=== PATIENT | female | born 1955 | race Caucasian/White ===

== ENCOUNTER 2019-08-04 11:10 | Inpatient (IN) ==
[2019-08-04] MEDS ORDERED: NS 1,000 ML IV PRN (11:32)
[2019-08-04 11:58] LABS: BILIRUBIN URINE NEGATIVE (NEGATIVE); BLOOD URINE NEGATIVE (NEGATIVE); COLOR YELLOW; GLUCOSE URINE NEGATIVE (NEGATIVE); KETONE URINE TRACE mg/dL (NEGATIVE); LEUKOCYTES URINE NEGATIVE (NEGATIVE); NITRITE URINE NEGATIVE (NEGATIVE); PH URINE 6.5; PROTEIN URINE TRACE mg/dL (NEGATIVE); SP GRAVITY URINE 1.016; TURBIDITY URINE CLEAR (CLEAR); URINE SOURCE CATH; UROBILINOGEN URINE NORMAL (NORMAL)
[2019-08-04 12:00] LABS: UR EPITHELIAL CELLS <10 /HPF (<10); URINE BACTERIA NEGATIVE /HPF; URINE RBC <10 /HPF (<10); URINE WBC <10 /HPF (<10)
[2019-08-04 12:06] LABS: BASO# 0.02 X1000 (0.0-0.2); BASO% 0.1 % (0.0-0.8); EOS# 0.01 X1000 (0.0-0.7); HEMATOCRIT 29.4 % (37.0-47.0); HEMOGLOBIN 8.7 g/dL (12.0-16.0); IMM GRAN# 0.06 X1000 (0.0-0.04); IMM GRAN% 0.3 % (0.0-0.5); LYMPH# 0.49 X1000 (1.2-3.4); LYMPH% 2.4 % (20.5-51.1); MCH 24.8 PG (27-31); MCHC 29.6 g/dL (33-37); MCV 83.8 FL (81-99); MONO# 0.86 X1000 (0.11-0.59); MONO% 4.3 % (1.7-9.3); MPV 9.6 FL (7.4-10.4); NEUT# 18.72 X1000 (1.4-6.5); NEUT% 92.9 % (42.2-75.2); PLT 328 X1000 (130-400); RBC 3.51 XMIL (4.2-5.4); RDW 14.3 % (11.5-14.5); WBC 20.16 X1000 (4.8-10.8)
--- NOTE | 2019-08-04 12:12 | Diag Imaging Result Doc PS360 ---
EXAM: CT HEAD W/O CONTRAST HISTORY: decreased mental status TECHNIQUE: CT head without intravenous contrast COMPARISON: None. FINDINGS: No parenchymal hemorrhage. No epidural or subdural hematoma. No subarachnoid hemorrhage. No mass identified on this noncontrasted exam. No hydrocephalus. Mucous in the right maxillary sinus.. IMPRESSION: No hemorrhage. Mild right maxillary sinusitis. This exam was performed using automated exposure control, adjustment of mA or kV according to patient size, and/or use of iterative reconstruction technique. Electronically signed by Ambrosio Maldonado 08/04/2019 12:09 PM
--- NOTE | 2019-08-04 12:13 | Diag Imaging Result Doc PS360 ---
EXAM: CHEST-PORTABLE HISTORY: decreased mental status TECHNIQUE: Single view COMPARISON: None. FINDINGS: The lungs are well expanded. There are bilateral basilar infiltrates. No cardiomegaly. Questionable tiny right pleural effusion. IMPRESSION: Bibasilar pneumonia Electronically signed by Ambrosio Maldonado 08/04/2019 12:11 PM
[2019-08-04 12:14] LABS: UR AMPHETAMINES QUAL PRESUMPTIVE POSITIVE (NONE DETECT); UR BARBITUATES QUAL NONE DETECTED (NONE DETECT); UR BENZODIAZEPIN QUAL NONE DETECTED (NONE DETECT); UR CANNABINOIDS QUAL NONE DETECTED (NONE DETECT); UR COCAINE QUAL NONE DETECTED (NONE DETECT); UR METHADONE QUAL NONE DETECTED (NONE DETECT); UR METHAMPHETAMINE QUAL NONE DETECTED (NONE DETECT); UR OPIATES QUAL NONE DETECTED (NONE DETECT); UR OXYCODONE QUAL NONE DETECTED (NONE DETECT); UR PCP QUAL NONE DETECTED (NONE DETECT); UR PROPOXYPHENE QUAL NONE DETECTED (NONE DETECT); UR TCA QUAL NONE DETECTED (NONE DETECT)
[2019-08-04 12:19] LABS: AGAP 12; ALBUMIN 3.6 g/dL (3.5-5.0); ALKALINE PHOSPHATASE 112 U/L (32-104); BUN 13 mg/dL (8-22); CALCIUM 8.9 mg/dL (8.8-10.2); CHLORIDE 96 mmol/L (98-107); COSMO 270; CREATININE 0.6 mg/dL (0.5-0.9); ESTIMATED GFR > 60; GLUCOSE 100 mg/dL (70-104); GOT 70 U/L (10-30); GPT 25 U/L (10-36); SODIUM 135 mmol/L (136-145); TCO2 27 mmol/L (25-35)
[2019-08-04 12:25] LABS: INR 1.22; PROTIME 16.1 Seconds (11.0-16.0)
[2019-08-04] MEDS ORDERED: ROCEPHIN IV ONE (12:48)
--- NOTE | 2019-08-04 13:08 | EKG Report ---
Test Performed on : 08/04/2019 12:51:22 PM Test Reason : altered mental status Blood Pressure : / mmHG Vent. Rate : 100 BPM Atrial Rate : 100 BPM P-R Int : 140 ms QRS Dur : 082 ms QT Int : 384 ms P-R-T Axes : 062 048 047 degrees QTc Int : 495 ms Normal sinus rhythm. Possible Left atrial enlargement Prolonged QT Abnormal ECG When compared with ECG of 16-APR-2019 13:32, QT has lengthened Unconfirmed Result
[2019-08-04 13:21] LABS: BE 4.9 mmoll (-3.0-3.0); BLOOD TYPE ARTERIAL; HCO3-(ACT) 28.6 mmoll (20.0-26.0); METHB 0.6 % (0.0-1.5); O2(CT) 11.8 mL/dL (15.0-23.0); O2HB 90.6 % (95.0-99.0); PCO2(98.6) 41 mmHg (35-45); PO2(98.6) 53 mmHg (60-100); SAMPLE BLOOD; SAO2 93.2 % (95.0-100.0); THB 9.2 g/dL (11.5-17.4); pH(98.6) 7.46 (7.35-7.45)
[2019-08-04 13:24] LABS: ALLEN TEST YES; MODALITY CANNULA
[2019-08-04] MEDS: ZITHROMAX 500 MG/NS 500 MG/250 ML IVPB IV SCH (14:15)
[2019-08-04] MEDS ORDERED: ROCEPHIN ONE (15:17)
--- NOTE | 2019-08-04 16:30 | PROVIDER DOCUMENTATION ---
This chart was entered by Rita Sierra Scribe, acting as scribe for Lindsey Vazquez MD. HPI-Psychological Disorder - General Chief Complaint: Altered Mental Status Stated Complaint: psych Time Seen by Provider: 08/04/19 11:21 Source: patient, EMS ([facility]) Unable to obtain history due to:: altered Allergies/Adverse Reactions: Patient Allergies Allergy/AdvReac Type Severity Reaction Status Date / Time No Known Allergies Allergy Verified 05/02/14 12:17 Home Medications: Home Medication List Medication Instructions Recorded Confirmed Last Taken Type Alprazolam [Xanax] 2 mg PO TID 05/02/14 05/03/14 05/03/14 04:00 History Amphetamine Salts [Adderall] 30 mg PO BID 05/02/14 05/03/14 04/30/14 10:00 History Carisoprodol [Soma] 350 mg PO TID 05/02/14 05/03/14 04/12/14 21:00 History Estradiol [Estrace] 1 mg PO DAILY 05/02/14 05/03/14 04/26/14 10:00 History Fluoxetine HCl [Prozac] 80 mg PO DAILY 05/02/14 05/03/14 05/02/14 10:00 History Iron 18 mg PO DAILY 05/02/14 05/03/14 03/28/14 09:00 History Levothyroxine [Synthroid] 88 microgm PO DAILY 05/02/14 05/03/14 04/30/14 10:00 History Metformin [Glucophage] 1,000 mg PO BID 05/02/14 05/03/14 05/02/14 16:00 History Oxycodone E.r. [Oxycontin] 15 mg PO Q12HR PRN 05/02/14 05/03/14 05/02/14 16:00 History Oxycodone HCl 30 mg PO BID 05/02/14 05/03/14 05/03/14 04:00 History Saxagliptin HCl [Onglyza] 2.5 mg PO DAILY 05/02/14 05/03/14 05/02/14 08:00 History Ciprofloxacin [Cipro] 250 mg PO BID #14 tab 04/16/19 Unknown Rx - History of Present Illness-Psych Nature of Presenting Problem: 63 yowf presents to the ed via ems ([facility]) for ams since yesterday. per ems family called and sts pt was tearing the house apart and has been aggressive toward family and wanted pt brought to hosp. pt on exam has increased rate of speech and not making logical sense to staff. pt has multiple abrasions and ecchymosis to BUE and face and dried blood seen on lips and face. pt is noncompliant with exam Onset/Duration: reports: 24 hours ago Timing: reports: still present, constant, getting worse Severity: reports: moderate Psychiatric Complaints: reports: altered mental status, impaired concentration, rapid pulse, restlessness Substance Use: reports: amphetamines, benzodiazepines Previous psych related hospitalizations?: Yes Patient arrived by:: EMS called by spouse/family Similar Symptoms Previously?: Yes Recently seen or treated by another doctor?: No Review of Systems - Adult - REVIEW OF SYSTEMS - ADULT ROS:: limited per condition Constitutional: denies: fever, fatique Eyes: reports: no symptoms reported Ears, Nose, Mouth & Throat: reports: see HPI, other (dried blood seen around mouth and bruising to rt cheek) Cardiovascular: denies: chest pain, syncope Respiratory: denies: shortness of breath, wheezing Gastrointestinal: reports: no symptoms reported Genitourinary: reports: no symptoms reported Musculoskeletal: reports: no symptoms reported Integumentary: reports: no symptoms reported Neurological: reports: no symptoms reported Psychiatric: reports: see HPI, anxiety Endocrine: reports: no symptoms reported Hematologic/Lymphatic: reports: no symptoms reported Allergic/Immunologic: reports: no symptoms reported All Other Systems: Reviewed and Negative Past History - Adult - PAST MEDICAL HISTORY-ADULT Review of Records: reports: Old Records Reviewed, Nursing Assessment Review, Medications Reviewed, Social history reviewed & non-contributory. Major Childhood Illnesses: reports: denies history Cardiovascular: reports: denies history Respiratory: reports: sleep apnea Gastrointestinal: reports: denies history Obstetrical/Gynecological: reports: denies history Genitourinary: reports: denies history Musculoskeletal: reports: denies history Neurological: reports: denies history Psychiatric: reports: anxiety, psychiatric problems, other (OCD) Endocrine/Immune: reports: thyroid disorder Other Conditions: reports: denies history - PRIOR SURGERIES/PROCEDURES Surgical/Procedure History: reports: reviewed, not pertinent - IMMUNIZATION STATUS Childhood Immunizations: See Nurse Assessment Flu Vaccine: See Nurse Assessment - FAMILY HISTORY Family History: reviewed, not pertinent - SOCIAL HISTORY Smoking: cigarettes, greater than 1 pack/day Provider spent 3-5 mins advising pt. on dangers of tobacco.: Discussed manners to quit use, and f/u contacts for add'l counseling. Substance Use: amphetamines, benzodiazepines Living Situation: family Physical Exam-Psych Focus - Physical Exam-Psych Exam Limited by: pt does not cooperate with whole exam Initial Vital Signs Reviewed: Yes Appearance: alert, anxious, combative, disheveled, impaired insight, impaired recent memory, impaired remote memory Neurological: agitated, anxious Behavior/Eye Contact/Speech: increased rate of speech, belligerent, uncooperative Thoughts/Hallucinations: incoherent HENMT: other (no teeth and dried blood seen around lips and face bruise on rt cheek). negative: moist mucous membranes Neck: non-tender, full range of motion Respiratory: chest non-tender, increased rate Cardiovascular: tachycardia (117) Abdominal Exam: non tender, soft Back Exam: no CVA tenderness, other (pt is supine on stretcher and not compliant with exam) Extremity: other (multiple abrasions to BUE) Integumentary: warm/dry, abrasion(s) (BUE), ecchymosis (face) Progress - PLAN OF CARE/RESULTS Progress/Plan/Lab Results: Vital Signs - 8 hr 08/04/19 11:17 08/04/19 12:49 08/04/19 13:45 Temperature 98 F Pulse Rate 117 H 101 H 96 H Respiratory Rate 24 25 H Blood Pressure 157/93 136/79 122/74 O2 Sat by Pulse Oximetry 93 L 86 L 95 08/04/19 15:41 Temperature Pulse Rate 89 Respiratory Rate 20 Blood Pressure 126/76 O2 Sat by Pulse Oximetry 96 Laboratory Results - last 24 hr 08/04/19 08/04/19 08/04/19 11:35 11:35 11:35 WBC 20.16 H RBC 3.51 L Hgb 8.7 L Hct 29.4 L MCV 83.8 MCH 24.8 L MCHC 29.6 L RDW Std Deviation 14.3 Plt Count 328 MPV 9.6 Immature Gran % (Auto) 0.3 Neut % (Auto) 92.9 H Lymph % (Auto) 2.4 L [place] % (Auto) 4.3 Eos % (Auto) 0.0 Baso % (Auto) 0.1 Immature Gran # (Auto) 0.06 H Neut # (Auto) 18.72 H Lymph # (Auto) 0.49 L [place] # (Auto) 0.86 H Eos # (Auto) 0.01 Baso # (Auto) 0.02 PT INR PTT (Actin FS) Specimen Type Sample Site pH pCO2 pO2 HCO3 Base Excess Oxyhemoglobin ABG O2 Sat (Calculated) ABG O2 Saturation ABG Carboxyhemoglobin ABG Methemoglobin Ashwin Test A-a O2 Difference Total Hemoglobin Lactate Liter Flow Blood Gas Modality FiO2 % Sodium Potassium Chloride Carbon Dioxide Anion Gap BUN Creatinine Estimated GFR/1.73 m2 BUN/Creatinine Ratio Glucose Calculated Osmolality Calcium Total Bilirubin AST ALT Alkaline Phosphatase Troponin T High Sens Total Protein Albumin Globulin Albumin/Globulin Ratio Plasma Lactate Urine Source Urine Color Urine Turbidity Urine pH Ur Specific [place] Urine Protein Ur Glucose (Stick) Ur Ketones (Stick) Urine Blood Urine Nitrite Urine Bilirubin Urobilinogen Dipstick Urine Leukocytes Urine WBC (Auto) Urine RBC (Auto) U Epithel Cells (Auto) Urine Bacteria (Auto) Urine Opiates Screen NONE DETECTED Ur Oxycodone Screen NONE DETECTED Urine Methadone Screen NONE DETECTED U Propoxyphene Qual NONE DETECTED Ur Barbituates Screen NONE DETECTED Ur Tricyclics Screen NONE DETECTED Ur Phencyclidine Scrn NONE DETECTED Ur Amphetamines Screen PRESUMPTIVE POSITIVE A U Methamphetamines Scrn NONE DETECTED U Benzodiazepines Scrn NONE DETECTED Urine Cocaine Screen NONE DETECTED U Cannabinoids Screen NONE DETECTED Plasma/Serum Ethyl Alc 08/04/19 08/04/19 08/04/19 11:35 11:35 11:35 WBC RBC Hgb Hct MCV MCH MCHC RDW Std Deviation Plt Count MPV Immature Gran % (Auto) Neut % (Auto) Lymph % (Auto) [place] % (Auto) Eos % (Auto) Baso % (Auto) Immature Gran # (Auto) Neut # (Auto) Lymph # (Auto) [place] # (Auto) Eos # (Auto) Baso # (Auto) PT 16.1 H INR 1.22 PTT (Actin FS) 36.0 Specimen Type Sample Site pH pCO2 pO2 HCO3 Base Excess Oxyhemoglobin ABG O2 Sat (Calculated) ABG O2 Saturation ABG Carboxyhemoglobin ABG Methemoglobin Ashwin Test A-a O2 Difference Total Hemoglobin Lactate Liter Flow Blood Gas Modality FiO2 % Sodium 135 L Potassium 4.0 Chloride 96 L Carbon Dioxide 27 Anion Gap 12 BUN 13 Creatinine 0.6 Estimated GFR/1.73 m2 > 60 BUN/Creatinine Ratio 22 Glucose 100 Calculated Osmolality 270 Calcium 8.9 Total Bilirubin 1.10 H AST 70 H ALT 25 Alkaline Phosphatase 112 H Troponin T High Sens 22 H* Total Protein 6.0 L Albumin 3.6 Globulin 2.0 Albumin/Globulin Ratio 2.0 Plasma Lactate Urine Source Urine Color Urine Turbidity Urine pH Ur Specific [place] Urine Protein Ur Glucose (Stick) Ur Ketones (Stick) Urine Blood Urine Nitrite Urine Bilirubin Urobilinogen Dipstick Urine Leukocytes Urine WBC (Auto) Urine RBC (Auto) U Epithel Cells (Auto) Urine Bacteria (Auto) Urine Opiates Screen Ur Oxycodone Screen Urine Methadone Screen U Propoxyphene Qual Ur Barbituates Screen Ur Tricyclics Screen Ur Phencyclidine Scrn Ur Amphetamines Screen U Methamphetamines Scrn U Benzodiazepines Scrn Urine Cocaine Screen U Cannabinoids Screen Plasma/Serum Ethyl Alc 08/04/19 08/04/19 08/04/19 11:35 12:52 13:19 WBC RBC Hgb Hct MCV MCH MCHC RDW Std Deviation Plt Count MPV Immature Gran % (Auto) Neut % (Auto) Lymph % (Auto) [place] % (Auto) Eos % (Auto) Baso % (Auto) Immature Gran # (Auto) Neut # (Auto) Lymph # (Auto) [place] # (Auto) Eos # (Auto) Baso # (Auto) PT INR PTT (Actin FS) Specimen Type ARTERIAL Sample Site R RADIAL pH 7.46 H pCO2 41 pO2 53 L HCO3 28.6 H Base Excess 4.9 H Oxyhemoglobin 90.6 L ABG O2 Sat (Calculated) 11.8 L ABG O2 Saturation 93.2 L ABG Carboxyhemoglobin 2.20 ABG Methemoglobin 0.6 Ashwin Test YES A-a O2 Difference 124.0 Total Hemoglobin 9.2 L Lactate 1.00 Liter Flow 3.5 Blood Gas Modality CANNULA FiO2 % 32.0 Sodium Potassium Chloride Carbon Dioxide Anion Gap BUN Creatinine Estimated GFR/1.73 m2 BUN/Creatinine Ratio Glucose Calculated Osmolality Calcium Total Bilirubin AST ALT Alkaline Phosphatase Troponin T High Sens Total Protein Albumin Globulin Albumin/Globulin Ratio Plasma Lactate 0.8 Urine Source CATH Urine Color YELLOW Urine Turbidity CLEAR Urine pH 6.5 Ur Specific [place] 1.016 Urine Protein TRACE A Ur Glucose (Stick) NEGATIVE Ur Ketones (Stick) TRACE A Urine Blood NEGATIVE Urine Nitrite NEGATIVE Urine Bilirubin NEGATIVE Urobilinogen Dipstick NORMAL Urine Leukocytes NEGATIVE Urine WBC (Auto) <10 Urine RBC (Auto) <10 U Epithel Cells (Auto) <10 Urine Bacteria (Auto) NEGATIVE Urine Opiates Screen Ur Oxycodone Screen Urine Methadone Screen U Propoxyphene Qual Ur Barbituates Screen Ur Tricyclics Screen Ur Phencyclidine Scrn Ur Amphetamines Screen U Methamphetamines Scrn U Benzodiazepines Scrn Urine Cocaine Screen U Cannabinoids Screen Plasma/Serum Ethyl Alc Orders Category Date Time Status Cardiac Monitoring DIRECTED Care 08/04/19 11:32 Completed Cardiac Monitoring DIRECTED Care 08/04/19 12:48 Completed IV Insertion ORDERED Care 08/04/19 12:48 Completed Notify MD of + Sepsis Screen NOW Care 08/04/19 12:48 Completed Notify Physician As Ordered Care 08/04/19 12:48 Completed Saline Loc NOW Care 08/04/19 11:32 Completed Use Oxygen.Protocol ORDERED Care 08/04/19 12:51 Completed CHEST-PORTABLE [RAD] Stat Exams 08/04/19 11:[address] HEAD W/O CONTRAST [CT] Stat Exams 08/04/19 11:32 Completed ABG [RESP] Routine Lab 08/04/19 12:52 Completed ALCOHOL BLOOD Stat Lab 08/04/19 11:35 Completed BLOOD CULTURE [BLDCUL] Stat Lab 08/04/19 12:49 Ordered CBC WITH ELECTRONIC DIFF [HEME] Stat Lab 08/04/19 11:35 Completed COMPREHENSIVE METABOLIC PANEL [CHEM] Stat Lab 08/04/19 11:35 Completed LACTATE, PLASMA [CHEM] Lab 08/04/19 13:19 Completed LACTATE, PLASMA [CHEM] Lab 08/04/19 16:19 Ordered LACTATE, PLASMA [CHEM] Lab 08/04/19 19:00 Uncollected PROTIME WITH INR [COAG] Stat Lab 08/04/19 11:35 Completed PTT [COAG] Stat Lab 08/04/19 11:35 Completed TROPONIN T HIGH SENSITIVITY Stat Lab 08/04/19 11:35 Completed URINALYSIS W/POSS RFLX CULT [URINALYSIS] Stat Lab 08/04/19 11:35 Completed URINE DRUG SCREEN PL Stat Lab 08/04/19 11:35 Completed 0.9% Sodium Chloride Inj [Ns] 1,000 ml Med 08/04/19 11:32 Active IV 999 mls/hr Azithromycin 500 mg/Ns [Zithromax 500 mg/Ns] Med 08/04/19 13:00 Active 500 mg in 250 ml IV Q24H CefTRIAXONE [Rocephin] Med 08/04/19 15:17 Discontinued 1 gm .ROUTE .STK-MED ONE CefTRIAXONE [Rocephin] Med 08/04/19 12:48 Discontinued 1 gm IV NOW ONE Oxygen Device Stat Oth 08/04/19 12:48 Active Geriatric Med Clearance >60yo Stat Psychiatry 08/04/19 11:15 Ordered EKG [EKG] Stat Ther 08/04/19 11:32 Draft Result Diagrams: 08/04/19 11:35 08/04/19 11:35 - REASSESSMENT Reassessment #1 Time Reassessed: 12:48 (pt is still not spweaking clearly and aggitated) Status: unchanged - EKG 1 Time of EKG reading by physician:: 12:51 EKG Read and Signed by:: Lindsey Vazquez EKG Interpretation (*Must complete 3 of following elements*): Abnormal Rate: 100 Rhythm: nsr [place]: normal QRS: other (poss left atria enlargement/prolonged QT) WA Interval: normal ST Wave: normal - XRAY 1 XRAY: Bilateral XRAY Study: Chest Impression: See EMR Report (EXAM: CHEST-PORTABLE HISTORY: decreased mental status TECHNIQUE: Single view COMPARISON: None. FINDINGS: The lungs are well expanded. There are bilateral basilar infiltrates. No cardiomegaly. Questionable tiny right pleural effusion. IMPRESSION: Bibasilar pneumonia Electronically signed by Ambrosio Maldonado 08/04/2019 12:11 PM 08/04/19 1211 Interpreting Physician: Ambrosio Maldonado MD Dictated Date/Time: 08/04/19 1210 cc: Lindsey Vazquez MD;) - CT/MRI 1 CT Study: Head Impression: See EMR Report (EXAM: CT HEAD W/O CONTRAST HISTORY: decreased mental status TECHNIQUE: CT head without intravenous contrast COMPARISON: None. FINDINGS: No parenchymal hemorrhage. No epidural or subdural hematoma. No subarachnoid hemorrhage. No mass identified on this noncontrasted exam. No hydrocephalus. Mucous in the right maxillary sinus.. IMPRESSION: No hemorrhage. Mild right maxillary sinusitis. This exam was performed using automated exposure control, adjustment of mA or kV according to patient size, and/or use of iterative reconstruction technique. Electronically signed by Ambrosio Maldonado 08/04/2019 12:09 PM 08/04/19 1209 Interpreting Physician: Ambrosio Maldonado MD Dictated Date/Time: 08/04/19 1207 cc: Lindsey Vazquez MD;) - CONSULTS/PCP/HOSPITALIST Notification #1 *Consult/PCP/Hospitalist*: hospitalist dr bowden Time Discussed: 14:24 Consult Disposition: Will see in ED, Admit Departure - Departure Date of Disposition Decision: 08/04/19 Time of Disposition Decision: 12:49 DIAGNOSIS: Tobacco use disorder Pneumonia Qualifiers: Pneumonia type: due to unspecified organism Laterality: bilateral Lung location: lower lobe of lung Qualified Code(s): J18.1 - Lobar pneumonia, unspecified organism Altered mental status Qualifiers: Altered mental status type: unspecified Qualified Code(s): R41.82 - Altered mental status, unspecified Disposition: ADMITTED INPATIENT 09 Certified Medical Emergency: Emergent Condition: Critical Referrals and Follow-Ups: None,PCP [Primary Care Provider] - - Critical Care Note This patient required my direct & personal management of CC.: Yes Total Time (mins): 37 Critical Care Statement: This patient required my direct personal management to treat or rule out processes, the absence of which, could potentiallly result in sudden, clinically significant life or limb threatening deterioration. Attestation - Physician/ JAKUB Attestation Patient care was provided by Advanced Practice Provider:: No The physician spent face to face time with patient:: Yes Advanced Practice Provider documentation review:: Supervising physician onsite and consulted in the evaluation and care of this patient. The physician did have a face to face encounter with the patient. This chart was documented by the indicated scribe, (Rita Sierra Scribe) and accurately reflects the services I performed and decisions made by me, Lindsey Vazquez MD, as attested by the provider's signature.
[2019-08-04] MEDS ORDERED: ZOFRAN IV PRN (18:05)
--- NOTE | 2019-08-04 21:05 | EKG Report ---
Test Performed on : 08/04/2019 7:14:09 PM Test Reason : elevated trop Blood Pressure : / mmHG Vent. Rate : 095 BPM Atrial Rate : 095 BPM P-R Int : 144 ms QRS Dur : 082 ms QT Int : 392 ms P-R-T Axes : 062 048 052 degrees QTc Int : 492 ms Normal sinus rhythm. Possible Left atrial enlargement Prolonged QT Abnormal ECG When compared with ECG of 04-AUG-2019 12:51, (Unconfirmed) No significant change was found Unconfirmed Result
[2019-08-04] MEDS: ZYPREXA PO SCH (22:27)
[2019-08-04] MEDS: SEROQUEL PO SCH (22:27)
--- NOTE | 2019-08-04 23:05 | HISTORY AND PHYSICAL ---
CHIEF COMPLAINT: Altered mental status. HISTORY OF PRESENT ILLNESS: This is a 63-year-old female who presented to the emergency room via EMS from [facility] after being called by family members. At the time of my exam, the patient is lethargic. She will rouse to tactile stimuli and her name called loudly. She will look around. She attempts to talk but speech is garbled, then she closes her eyes and dozes back to sleep, so history is taken from the past charts and the ER notes. Evidently, the patient has been living with family members and she has been confused, aggressive toward the family and tearing the house apart over the last few days. Therefore, they called EMS. On arrival, she was noted to have a bruise to the right side of her face, dried blood to her lips, areas on her face as well as abrasions and bruises to bilateral upper extremities with skin tears noted. Of note, family members did not come to the ER with the patient. They did send and phone number with EMS. PAST MEDICAL HISTORY: Hypothyroid, history of ovarian cancer, sleep apnea prior to gastric bypass, OCD, diabetes mellitus. INCOMPLETE REPORT -- DICTATION ENDS HERE Dictated by MIGUEL Hart for Royce Yadav MD cc: MIGUEL Hart MD
--- NOTE | 2019-08-04 23:14 | HISTORY AND PHYSICAL ---
CHIEF COMPLAINT: Altered mental status. HISTORY OF PRESENT ILLNESS: Patient is a 63-year-old female who currently is much more awake than she was when she initially arrived to the ER. She states she has no idea what day it is. She realizes she is in the hospital, but has no idea how she got here or why she is here. Apparently she was at home tearing the house apart. She has been very aggressive toward her family. Initially in the ER, she was confused, completely illogical speaking in nonsensical words. She is noted to have multiple abrasions and ecchymoses on her bilateral upper extremities, face with dried blood seen on her lips, face and arms. The major thing that she continues to state is that she is on Suboxone as well as Neurontin and she needs to take those although oddly enough she admits that she has no idea when she last took her doses. She states that it has to be time and "I'm supposed to take those." ALLERGIES: No known drug allergies. MEDICATIONS: I do not have an active medication list, but she admits to being on Adderall, Soma, gabapentin. She notes that she is on multiple psychiatric medications, but she does not remember the names and thinks that she may be on other medications as well. PAST MEDICAL HISTORY: From the chart, it appears she does have OCD as well as other psychiatric problems. Has hypothyroidism, diabetes, ADD. She has a history of opiate abuse, currently on medication assisted therapy. FAMILY HISTORY: Noncontributory. SOCIAL HISTORY: She smokes greater than a pack a day. The patient denies using illicit substances. Does note that she does take some narcotics by prescription only. Denies alcohol. REVIEW OF SYSTEMS: Effectively unobtainable from Ms. Armstrong given her acute disorientation. She currently denies any chest pain, palpitations. Denies any shortness of breath. Denies any sweating, muscle aches, tremors, myalgias, effectively denying any opiate withdrawal type symptoms although again stated several times that she needs to take her Suboxone. PHYSICAL EXAMINATION: VITAL SIGNS: Reviewed. Temperature 98 degrees, pulse 117, respiratory 24, BP 153/93, saturation 95% on room air. GENERAL: Patient is awake. She is in no current respiratory distress. She is disheveled in appearance. Has multiple bruises, skin tears, dried blood on her upper extremities, face and lips. She appears to have a very poor memory. Insight is impaired. Recent memory is impaired. Long-term memory appears impaired. She is currently cooperative. She is no longer belligerent. Her speech rate has slowed, but has still incoherent thoughts . She is lying on the bed with the head elevated 30 degrees. HEENT: Normocephalic. NECK: Supple. CARDIOVASCULAR: Tachycardia. CHEST: Clear and nonlabored. No wheezing. ABDOMEN: Soft, nondistended, nontender. SKIN: As noted above. ASSESSMENT: 1. Leukocytosis. 2. Anemia of chronic disease. 3. Chronic tobacco abuse. 4. Bibasilar pneumonia. 5. Metabolic encephalopathy of undetermined origin. Certainly could be sepsis secondary to her pneumonia. PLAN: We are going to admit her to the hospital, place her on antibiotics, oxygen. We will follow. We will not restart Suboxone currently. Oddly enough, when asked patient notes that she takes Suboxone 3 times daily. I did discuss with her that is entirely too high of a dose. She promptly stated that she usually just takes it twice, sometimes only once. At that point I discussed that if she is taking at that infrequently, then there is no chance that she is in acute withdrawal and we will need to watch her for a little bit to see how she does prior to restarting some of her narcotics as it certainly could cause sedation. cc: Royce Yadav MD
[2019-08-04] MEDS: NS 1,000 ML IV SCH (23:22)
[2019-08-05] MEDS: TYLENOL PO PRN (06:20)
[2019-08-05] MEDS: PRILOSEC PO SCH (06:20)
[2019-08-05 06:37] LABS: BASO# 0.01 X1000 (0.0-0.2); BASO% 0.1 % (0.0-0.8); EOS# 0.03 X1000 (0.0-0.7); EOS% 0.2 % (0.0-10.0); HEMATOCRIT 26.8 % (37.0-47.0); IMM GRAN# 0.03 X1000 (0.0-0.04); IMM GRAN% 0.2 % (0.0-0.5); LYMPH% 5.6 % (20.5-51.1); MCH 24.7 PG (27-31); MCHC 29.9 g/dL (33-37); MCV 82.7 FL (81-99); MONO# 0.69 X1000 (0.11-0.59); MONO% 5.6 % (1.7-9.3); MPV 9.7 FL (7.4-10.4); NEUT# 10.93 X1000 (1.4-6.5); NEUT% 88.3 % (42.2-75.2); PLT 297 X1000 (130-400); RBC 3.24 XMIL (4.2-5.4); RDW 14.3 % (11.5-14.5); WBC 12.39 X1000 (4.8-10.8)
[2019-08-05 06:41] LABS: HEMOGLOBIN A1C 4.9 % (4.8-6.0)
[2019-08-05 06:46] LABS: AGAP 13; BUN 15 mg/dL (8-22); CALCIUM 8.3 mg/dL (8.8-10.2); CHLORIDE 103 mmol/L (98-107); COSMO 277; CREATININE 0.6 mg/dL (0.5-0.9); ESTIMATED GFR > 60; GLUCOSE 76 mg/dL (70-104); MAGNESIUM 1.7 mg/dL (1.5-2.7); POTASSIUM 3.6 mmol/L (3.5-5.1); SODIUM 139 mmol/L (136-145); TCO2 23 mmol/L (25-35)
[2019-08-05 07:12] LABS: LYMPHS 4 % (21-51); MONO 1 % (1-9); SEGS 95 % (42-75)
--- NOTE | 2019-08-05 09:11 | Diag Imaging Result Doc PS360 ---
EXAM: CHEST-2 VIEWS HISTORY: cough TECHNIQUE: Two views COMPARISON: 08/04/2019 FINDINGS: There are dense lower lobe infiltrates. These are actually slightly less prominent than they were on the prior study. No cardiomegaly. No pleural effusions. No pulmonary edema. IMPRESSION: Interval improvement in the bilateral basilar pneumonia Electronically signed by Ambrosio Maldonado 08/05/2019 9:08 AM
[2019-08-05] MEDS: PROZAC PO SCH (09:14)
[2019-08-05] MEDS: SUBOXONE 8 MG/2 MG FILM SL SCH ×2 (09:14→20:42)
[2019-08-05] MEDS: ZITHROMAX 500 MG/NS 500 MG/250 ML IVPB IV SCH ×2 (12:22→12:23)
[2019-08-05] MEDS: NS 1,000 ML IV SCH (12:22)
[2019-08-05] MEDS ORDERED: ROCEPHIN 1 GM in NS 50 ML IV SCH (15:30)
[2019-08-05] MEDS ORDERED: BUSPAR PO PRN (18:28)
[2019-08-05] MEDS: ZYPREXA PO SCH (20:42)
[2019-08-05] MEDS: SEROQUEL PO SCH (20:43)
[2019-08-05] MEDS ORDERED: SEROQUEL PO PRN (21:00)
[2019-08-05] MEDS ORDERED: ZYPREXA PO SCH (21:00)
--- NOTE | 2019-08-06 05:06 | PROGRESS NOTE ---
DATE: 08/05/2019 SUBJECTIVE: Patient notes that she feels a lot better. Still uncertain of what happened yesterday, how she got to the hospital, why the ambulance was called. PHYSICAL EXAMINATION: Vital Signs: Temperature 100.7 degrees, pulse 108, respiratory rate 18, BP 125/68. General: Patient is in no respiratory distress. HEENT: Normocephalic. Neck: Supple. Cardiovascular: Regular rate. Chest: Clear, nonlabored. Abdomen: Soft. Extremities: Moves all extremities. Neurologic: No changes. Skin: She has multiple broken skin areas with bruises of various staging. No current bleeding or drainage. ASSESSMENT: 1. Leukocytosis, improved. 2. Anemia of chronic disease. 3. Chronic tobacco abuse. 4. Bibasilar pneumonia. 5. Metabolic encephalopathy. 6. Sepsis. PLAN: We will continue patient in the hospital. Continue antibiotics as she has had a low-grade fever. If this resolves, hopefully she can discharge home tomorrow. cc: Royce Yadav MD
[2019-08-06 06:02] VITALS: BP 145/63
[2019-08-06] MEDS: PRILOSEC PO SCH (06:16)
[2019-08-06] MEDS: TYLENOL PO PRN (06:42)
[2019-08-06] MEDS: NS 1,000 ML IV SCH (06:45)
[2019-08-06] MEDS ORDERED: NEURONTIN PO PRN (07:15)
[2019-08-06] MEDS ORDERED: VOLTAREN PO PRN (07:15)
[2019-08-06] MEDS ORDERED: ZITHROMAX PO SCH (09:00)
[2019-08-06] MEDS: SUBOXONE 8 MG/2 MG FILM SL SCH (09:57)
[2019-08-06] MEDS: PROZAC PO SCH (09:58)
--- NOTE | 2019-08-06 15:25 | PROGRESS NOTE ---
DATE: 08/06/2019 SUBJECTIVE: Disregard this is a discharge summary. INCOMPLETE REPORT -- DICTATION ENDS HERE. cc: Royce Yadav MD
--- NOTE | 2019-08-07 07:54 | DISCHARGE SUMMARY ---
ADMISSION DATE: 08/04/2019 DISCHARGE DATE: 08/06/2019 DISCHARGE DIAGNOSES: 1. Febrile illness, improved. 2. Leukocytosis. 3. Hypertension. 4. Bibasilar pneumonia. 5. Metabolic encephalopathy, resolved. 6. Chronic tobacco abuse. 7. Anemia of chronic disease. CONSULTATIONS: None. PROCEDURES: None. BRIEF HOSPITAL COURSE: The patient is a 63-year-old female who was admitted to the hospital secondary to metabolic encephalopathy, confusion, disorientation. The patient was admitted to the hospital, placed on antibiotics, found to have pneumonia. Thankfully, her symptoms seemed to resolve on discharge. She is awake, alert. She is in no distress. She is feeling better. States that she has no new complaints. DISPOSITION: Greater than 30 minutes were spent in total care. The patient will be discharged home. She will follow up outpatient with treatment facility of choice. She is instructed to follow up with her primary care in 1 week, or return to the ER if symptoms worsen. cc: Royce Yadav MD
== END 2019-08-06 15:25 | disposition home or self-care (01) | DRG 871 ==
LOC: P.ED 11:10 → P.MEDSURG 20:12
PROVIDERS: ATTEND Family Medicine